=== PATIENT | female | born 1990 | race Caucasian/White ===

== ENCOUNTER 2017-07-30 06:00 | Inpatient (IN) ==
[2017-07-30] MEDS ORDERED: Naloxone 0.4 MG/ML INJ IVP PRN (06:09)
[2017-07-30] MEDS ORDERED: Famotidine 20 MG/2 ML VIAL IVP PRN (06:09)
--- NOTE | 2017-07-30 07:00 | OB/GYN History & Physical ---
Date of Encounter: 07/30/17 Time of Encounter: 06:45 Assessment and Plan (1) 39 weeks gestation of Current visit: Yes Status: Acute (2) Elective induction of labor planned Current visit: Yes Status: Acute - NST assessment. - IV Fluids - CBC - UDS - Epidural consult History of Present Illness Chief complaint: Induction of labor HPI: Ms. Alvarez is a 26 year old female at 39 6/7 weeks gestation that presents for induction of labor. She admits to good movement. She denies any vaginal fluid loss or bleeding. She denies any contractions. She denies MARTINEZ, vision changes, chest pain, shortness of breath nausea, vomiting, fever, chills , dysuria, or diarrhea. GBS: negative HepBSAg: non-reactive (01/18/17) HIV Ag/Ab: non-reactive T. Pallidum Ab: negative Rubella Ab: positive Varicella Ab: positive Blood Type: O+ Past Med Surg Social Fam HX - Past Medical History Medical history: no medical history Psychiatric history: no psych history - Social History Smoking Status: Current every day smoker Smokeless Tobacco Status: No Alcohol use: none Drug use: none - Family History Grandfather Living Status: Hx Family Cancer: Yes Obstetrical History - Pregnancies : 1 Para: 0 Term: 0 : 0 Ab's: 0 Livin Medications and Allergies Nitrofurantoin (BID) [Macrobid] 100 mg PO BID #14 capsule 12/24/16 [Rx] 3 Allergy/AdvReac Type Severity Reaction Status Date / Time No Known Allergies Allergy Verified 12/24/16 12:47 Exam - Vital Signs Vital signs: BP: 141/89 HR: 83 - Constitutional Constitutional: well developed, well nourished, no acute distress, average body habitus - Lungs Respiratory exam: CTAB - Cardiovascular Cardiovascular exam: RRR, +S1, +S2 - Abdomen Abdomen: Present: bowel sounds normal, gravid, non tender - Extremities Extremities exam: full ROM, normal capillary refill, normal inspection, radial pulses palpable and symmetrical Deep Tendon Reflex Grade: 2+ Normal Results Result Diagrams: 07/30/17 08:50 07/30/17 08:50 All other labs normal. - VTE Reasons for not Prescribing Prophylaxis: Treatment not Indicated - Low risk for VTE - Attending Attestation I examined this patient and my medical decision-making was reviewed with the Resident Physician. I agree with the documented findings, disposition and treatment plan as described. Bradley Marcelo CNM
[2017-07-30] MEDS ORDERED: miSOPROStol 25 MCG TABLET VG PRN (08:41)
[2017-07-30 09:00] LABS: Basophils % 0.3 %; Eosinophils # 0.2 K/mcL (0.0-0.6); Hematocrit 32.4 % (35.3-44.9); Hemoglobin 10.4 g/dL (11.5-15.4); Immature Granulocytes % 0.8 % (0-4); Lymphocytes # 3.2 K/mcL (0.6-4.6); Lymphocytes % 21.5 %; Mean Corpuscular HGB Conc 32.1 g/dL (31.6-35.5); Mean Corpuscular Hemoglobin 26.7 pg (28.0-33.3); Mean Corpuscular Volume 83.3 fL (83.0-100.0); Mean Platelet Volume 11.7 fL (9.4-12.4); Monocytes # 1.2 K/mcL (0.0-1.3); Monocytes % 8.1 %; Neutrophils # 10.2 K/mcL (1.6-8.9); Platelet Count 254 K/mcL (140-400); Red Blood Count 3.89 M/mcL (3.82-4.97); Red Cell Distribution Width 15.3 % (11.5-14.5); Segmented Neutrophils % 68.3 %
[2017-07-30 09:25] LABS: Alanine Aminotransferase 8 Units/L (0-55); Aspartate Amino Transferase 14 Units/L (5-34); BUN/Creatinine Ratio 11 (6-26); Blood Urea Nitrogen 9 mg/dL (7-20); Lactate Dehydrogenase 194 Units/L (159-327); Uric Acid 4.9 mg/dL (2.6-6.0); eGFR For African Americans > 60 (> 60); eGFR For Non-African Americans > 60 (> 60)
[2017-07-30] MEDS: Ringers Solution, Lactated 1,000 ML IVC SCH ×2 (09:38→17:08)
[2017-07-30] MEDS ORDERED: Mag Hydrox/Al Hydrox/Simeth 30 ML UDC PO PRN (10:50)
[2017-07-30] MEDS ORDERED: miSOPROStol 25 MCG TABLET PO PRN (12:02)
[2017-07-30 12:13] LABS: Amphetamine Screen,Urine Negative ng/mL (Cutoff=1000); Barbiturate Screen,Urine Negative ng/mL (Cutoff=200); Benzodiazepines Screen,Urine Negative ng/mL (Cutoff=200); Cannabinoid Screen,Urine Negative ng/mL (Cutoff = 50); Cocaine Screen,Urine Negative ng/mL (Cutoff= 300); Opiate Screen,Urine Negative ng/mL (Cutoff=300); Phencyclidine Screen,Urine Negative ng/mL (Cutoff=25)
[2017-07-30 15:03] LABS: Creatinine,Urine 45 mg/dL
[2017-07-30 15:10] LABS: Protein/Creatinine Ratio,Urine < 0.16 mg/mg (0-0.20)
[2017-07-30] MEDS ORDERED: Nicotine 14 MG PATCH.TD24 TD SCH (15:45)
--- NOTE | 2017-07-30 16:30 | OB Labor Progress Note ---
Date of Encounter: 07/30/17 Time of Encounter: 16:28 Labor Progress Note - Subjective Subjective: Patient resting comfortably in bed. - Vital Signs Vital Signs: VSS - Cervix Cervix: 4/80/-1 - Heart Tones Heart Tones: 130 moderate variablility and 15 x 15 accels. - [place] Finlayson: irregular contractions - Interventions Interventions: AROM for small amount of clear fluid, fetus and patient tolerated well. - Plan Plan: Continue routine labor management GBS negative Patient may have nubain and/or epidural upon request Consider pitocin if needed for labor augmentation Anticipate vaginal delivery POC per cosult with Dr Seo.
--- NOTE | 2017-07-30 19:23 | OB Labor Progress Note ---
Date of Encounter: 07/30/17 Time of Encounter: 19:19 Labor Progress Note - Subjective Subjective: Patient resting comfortably in bed. States contractions feel like period cramps.. - Vital Signs Vital Signs: VSS - Cervix Cervix: 4/80/-2 midposition and moderate consistency - Heart Tones Heart Tones: 130's with moderate variability; category I tracing - [place]: Contractions every 3-4 minutes, mild to palpation - Interventions Interventions: IUPC placed without difficulty. Fetus and patient tolerated well. - Plan Plan: Continue routine labor management GBS negative Patient may have nubain and/or epidural if needed for pain control Start IV pitocin for labor augmentation per policy Anticipate vaginal delivery POC per consult with Dr Seo.
[2017-07-30] MEDS ORDERED: Oxytocin 20 units/ LR 1000 mL 20 UNIT/1,000 ML BAG IVC SCH (19:30)
[2017-07-30] MEDS: *HR* Nalbuphine 20 MG/ML AMPUL IVP PRN (22:15)
[2017-07-31] MEDS: *HR* Nalbuphine 20 MG/ML AMPUL IVP PRN (01:30)
[2017-07-31] MEDS ORDERED: EPHEDrine 50 MG/ML VIAL IVP PRN (02:50)
[2017-07-31] MEDS ORDERED: Ringers Solution, Lactated 500 ML IVC ONE (02:50)
[2017-07-31] MEDS ORDERED: *HR* Ropivacaine/PF 0.2% 10 ML AMPUL EP ONE (02:50)
--- NOTE | 2017-07-31 02:54 | Anesthesia Evaluation PreOp ---
Date of Encounter: 07/31/17 Time of Encounter: 02:45 - Past History Planned Operation: ELIU Cardiac History: Denies any Significant Hx Pulmonary History: Smoker FOOD RUNNER History: Denies Any Significant HX Other Medical History: Denies Any Significant HX : Yes Alcohol Use: none Drug use: none Medications and Allergies Nitrofurantoin (BID) [Macrobid] 100 mg PO BID #14 capsule 12/24/16 [Rx] 3 Allergy/AdvReac Type Severity Reaction Status Date / Time No Known Allergies Allergy Verified 12/24/16 12:47 - Meds/Allergy Pre-op Review Medications Reviewed: Yes Allergies Reviewed: Yes Beta Blockers on Current Med List: No Anesthesia Results - Labs 07/30/17 08:50 07/30/17 08:50 Anesthesia Exam Height: 1.73m Weight: 125.5kg NPO (# of Hours): >6 Pain Scale: 10 Pain Scale Used: Numeric (1 - 10) - HEENT Pupil (Motor): Pupils equal Mallampati: II Teeth: Normal Oral Opening: Greater than 3 - FOOD RUNNER LOC: Oriented FOOD RUNNER Motor: Normal RUE, Normal LUE, Normal RLE, Normal LLE, Normal Face FOOD RUNNER Sensory: Normal: RUE, LUE, RLE, LLE, Face - Cardiac Rhythm: Regular Murmur: None JVD: No Carotid Bruit: No - Pulmonary Breath Sounds: bilateral Clear Respiratory Effort: Symmetrical Anesthesia Assess/Plan ASA Score: 3 (Smoker, BMI 42.5) Modified Renetta Scale for Level of Consciousness: Cooperative, oriented, and tranquil Anesthetic Plan: Regional Monitoring Plan: Standard Monitors Recovery Plan: Other
[2017-07-31] MEDS ORDERED: ROPIVACAINE HCL/PF 0.5% 30 ML VIAL ONE (02:55)
[2017-07-31] MEDS ORDERED: Epidural Premix (fent/bupiv) 110 ML EP ONE ×2 (02:55→09:36)
[2017-07-31] MEDS ORDERED: Epidural Premix (fent/bupiv) 110 ML EP SCH (03:00)
--- NOTE | 2017-07-31 03:21 | Anesthesia Procedures ---
Date of Encounter: 07/31/17 Time of Encounter: 02:57 Procedures: Anesthesia - Epidural/Spinal Patient ID/Chart reviewed: Yes Patient examined: Yes OB Eval: Gestational age: 39.6 OB Eval: : 1 OB Eval: Hx Para: 0 OB Eval: Dilated at (cm): 6 OB Eval: Contractions: Non-stressed pattern Consent Obtained: Yes Supplemental Oxygen: None/Room Air Site Prep: Aseptic Technique, Sterile prep and drape, 0.5% Chlorhexidine/Alcohol Patient position: upright Local Anesthetic: Lidocaine 1% Amount of Local Anesthetic used: 3 Touhy Needle Gauge: 18 Touhy Needle Depth (cm): 10 Catheter Depth at Skin (cm): 15 Test Dose (1.5% Lido + Epi): Volume given (mls): 5 Test Dose Result: Negative Loading Dose: Other: Ropivacaine 0.5% 10mL Loading Dose Administered: Thru Catheter Infusion Med: 0.125% Bupivacaine w/ 2 mcg/ml Fentanyl Infusion Rate (mls/hr): [address]: Tegaderm Interspace Used: L2-L3 Loss of Resistance (TIFFANIE): Yes Blood: No CSF: No Paresthesia: No Procedure: x1 attempt. Patient tolerated well and reported relief within 2 contractions. Vitals + FHT's: VSS and FHR stable throughout. See nursing documentation.
[2017-07-31] MEDS ORDERED: 0.9 % Sodium Chloride 500 ML ONE (09:27)
[2017-07-31] MEDS ORDERED: Lidocaine 1% 20 ML MDV ONE (12:13)
--- NOTE | 2017-07-31 12:47 | OB/GYN Procedure Note ---
Delivery - Delivery Date: 07/31/17 Provider: Millie Hernandez Intrapartum events: none Delivery induction: oxytocin, misoprostol Delivery augmentation: pitocin Delivery monitor: internal FHT, internal uterine Anesthesia: epidural Estimated Blood Loss: 300 - Infant (s) Infant A Delivery Date: 07/31/17 Infant Delivery Time: 12:00 Presentation: vertex Position: OA Route of delivery: Gender: Male Viability: Viable Pounds: 7 Ounces: 6 Weight Gram: 3.35 kg at 1 minute: 8 at 5 mins: 9 Shoulder Dystocia: not encountered Specimens collected: cord blood Placenta: spontaneous Cord: 3 umbilical vessels - Repair Episiotomy: none Laceration Description: Perineal - 2nd Degree - Complications Delivery complications: uterine atony Delivery comments: Pt progressed normally to complete dilation and pushed effectively to for viable male weighing 7lbs. 6oz. with apgars 8 at one minute and 9 at five minutes. After a 3 minute delay the cord was clamped and cut and the placenta delivered spontaneous and intact. Uterine atony was noted immediately following the delivery of the placenta. Pitocin was started and methergine was given. Bleeding was moderate. A second degree laceration was repaired with 3-0 Vicryl. EBL 300. Fundus firm and mother and baby stable in kangaroo care following procedure. - Disposition Mom disposition: stable in LDR [place] disposition: stable in LDR
[2017-07-31] MEDS ORDERED: Measles/Mumps/Rubella Vacc 0.5 ML VIAL SQ PRN (15:21)
[2017-07-31] MEDS ORDERED: Lanolin 7 G OINT...G. TP PRN (15:21)
[2017-07-31] MEDS ORDERED: Benzocaine/Menthol 56 GM AEROSOL SPRAY TP PRN (15:21)
[2017-07-31] MEDS ORDERED: Acetaminophen 325 MG TABLET PO PRN (15:21)
[2017-07-31] MEDS ORDERED: Oxytocin 20 units/ LR 1000 mL 20 UNIT/1,000 ML BAG IVC SCH (15:21)
[2017-07-31] MEDS: Ibuprofen 600 MG TABLET PO PRN (16:13)
[2017-08-01] MEDS: Prenatal Vit/FA 1 EACH TABLET PO SCH (08:11)
[2017-08-01] MEDS: Ibuprofen 600 MG TABLET PO PRN ×2 (08:11→17:48)
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
[2017-08-02 07:46] VITALS: BP 128/85
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
[2017-08-02] MEDS: Prenatal Vit/FA 1 EACH TABLET PO SCH (10:44)
[2017-08-02] MEDS: Ibuprofen 600 MG TABLET PO PRN (10:44)
== END 2017-08-02 11:14 | disposition home or self-care (01) | DRG 775 ==
LOC: 1NENULAB 06:03 → 1NENUOBS 07-31 15:14
PROVIDERS: ADMIT Advanced Practice Midwife; ATTEND Advanced Practice Midwife